=== PATIENT | female | born 1950 | race Caucasian/White ===

== ENCOUNTER 2017-01-05 09:40 | Day surgery (SDC) | payer MEDICARE, BC ==
[~2017-01-05 09:40] MED LIST: Ketorolac 30 MG/ML SDV ONE; Lactated Ringers 1,000 ML IV SCH; Midazolam 1 MG/ML 2 ML SDV ONE; Ondansetron 4 MG/2 ML SDV ONE; Propofol 200 MG/20 ML SDV ONE; Sodium Chloride 0.9% 10 ML Syringe FLUSH PRN; Sodium Chloride 0.9% 2.5 ML Syringe FLUSH PRN; fentaNYL 100 MCG/2 ML SDV ONE
--- NOTE | 2017-01-05 10:07 | PCM.PREANE ---
Preanesthetic Assessment - Anesthesia/Transfusion/Family Hx Anesthesia History: Prior Anesthesia Reaction Type of Anesthesia Reaction: Excessive Nausea/Vomiting Family History of Anesthesia Reaction: No Transfusion History: No Prior Transfusion(s) - Review of Systems General: No Symptoms - Physical Assessment NPO Status Date: 01/04/17 O2 Sat by Pulse Oximetry: 97 Respiratory Rate: 16 Vital Signs: Last Vital Signs Temp 36.4 C 01/05/17 10:02 Pulse 72 01/05/17 10:02 Resp 16 01/05/17 10:02 BP 140/85 01/05/17 10:02 Pulse Ox 97 01/05/17 10:02 Height: 1.65 m Weight: 61.689 kg ASA Class: 2 Mental Status: Alert & Oriented x3 Airway Class: Mallampati = 1 Dentition: Reports: Normal Dentition ROM/Head Extension: Full Lungs: Clear to Auscultation, Normal Respiratory Effort Cardiovascular: Regular Rate, Regular Rhythm - Allergies Allergies/Adverse Reactions: Allergies Allergy/AdvReac Type Severity Reaction Status Date / Time doxycycline Allergy Diarrhea Verified 12/30/16 16:28 hydromorphone [From Dilaudid] Allergy Drowsiness Verified 12/30/16 16:28 levofloxacin [From Levaquin] Allergy Hallucinati Verified 12/30/16 16:28 ons - Anesthesia Plan Pre-Op Medication Ordered: None - Acknowledgements Anesthesia Type Planned: General Anesthesia Pt an Appropriate Candidate for the Planned Anesthesia: Yes Alternatives and Risks of Anesthesia Discussed w Pt/Guardian: Yes Pt/Guardian Understands and Agrees with Anesthesia Plan: Yes PreAnesthesia Questionnaire Other HEENT History: wears glasses Gastrointestinal History: Reports: Irritable Bowel Syndrome Genitourinary History: Reports: None Neurological History: Reports: Migraines Other Neuro History: some motion sickness, hx of migranes..not lately - Past Surgical History HEENT Surgical History: Reports: Naso-Sinus Surgery, Tonsillectomy GI Surgical History: Reports: Cholecystectomy, Colonoscopy, EGD Female Surgical History: Reports: Hysterectomy, Tubal Ligation, Other (See Below) Other Female Surgeries/Procedures: TOVT and Laparoscopy - SUBSTANCE USE Smoking Status *Q: Never Smoker Recreational Drug Use History: No - HOME MEDS Home Medications: Home Meds Calcium Carbonate [Calcium] 1,000 mg PO BID 12/30/16 [History] Cetirizine [ZyrTEC] 10 mg PO ASDIRECTED PRN 12/30/16 [History] Cholecalciferol (Vitamin D3) [Vitamin D3] 1,000 unit PO DAILY 12/30/16 [History] Citalopram [Celexa] 20 mg PO DAILY 12/30/16 [History] Cyanocobalamin (Vitamin B12) [Vitamin B12] 1,000 mg PO DAILY 12/30/16 [History] Gluc/Nikunj-Msm#1/Vit C/Toni/Bor [Nxjwbvt-Lcsve-USP Complex Cplt] 1 cap PO BID [History] Hyoscyamine [Hyomax-SL] 0.125 mg PO ASDIRECTED PRN 12/30/16 [History] L.acidoph,Paracasei, B.lactis [Probiotic] 1 cap PO DAILY 12/30/16 [History] Meclizine [Antivert] 25 mg PO ASDIRECTED PRN 12/30/16 [History] Multivitamin [Multivitamins] 1 cap PO DAILY 12/30/16 [History] Jen Juice 2 oz PO DAILY 12/30/16 [History] Psyllium Husk [Metamucil] 1 tbsp PO DAILY 12/30/16 [History] Sodium Chloride 5% [Go 128 5% Ophth Oint] 1 dose EYEBOTH BEDTIME 12/30/16 [ History] - CURRENT (IN HOUSE) MEDS Current Meds: Current Medications Lactated Ringer's (Ringers, Lactated) 1,000 mls @ 125 mls/hr IV ASDIRECTED [facility] Last Admin: 01/05/17 10:04 Dose: 125 mls/hr Sodium Chloride (Saline Flush) 10 ml FLUSH ASDIRECTED PRN PRN Reason: Keep Vein Open Sodium Chloride (Saline Flush) 2.5 ml FLUSH ASDIRECTED PRN PRN Reason: Keep Vein Open Discontinued Medications Fentanyl (Sublimaze) Confirm Administered Dose 100 mcg .ROUTE .STK-MED ONE Stop: 01/05/17 07:18 Fentanyl (Sublimaze) Confirm Administered Dose 100 mcg .ROUTE .STK-MED ONE Stop: 01/05/17 07:19 Ketorolac Tromethamine (Toradol) Confirm Administered Dose 30 mg .ROUTE .STK- MED ONE Stop: 01/05/17 07:20 Lidocaine HCl (Xylocaine-Mpf 1%) Confirm Administered Dose 5 ml .ROUTE .STK-MED ONE Stop: 01/05/17 07:20 Midazolam HCl (Versed 1 Mg/Ml) Confirm Administered Dose 2 mg .ROUTE .STK-MED ONE Stop: 01/05/17 07:19 Ondansetron HCl (Zofran) Confirm Administered Dose 4 mg .ROUTE .STK-MED ONE Stop: 01/05/17 07:20 Propofol (Diprivan 20 Ml) Confirm Administered Dose 200 mg .ROUTE .STK-MED ONE Stop: 01/05/17 07:18
[2017-01-05] MEDS ORDERED: Lidocaine 1% with EPINEPHrine 1:100,000 20 ML MDV ONE (10:33)
[2017-01-05] MEDS ORDERED: Bupivacaine 0.25% 10 ML SDV ONE (10:33)
[2017-01-05] MEDS ORDERED: Neomycin/Polymyxin B Bladder Irrigation 1 ML Amp ONE (10:34)
--- NOTE | 2017-01-05 11:49 | PCM.OPNOTE ---
- General Post-Op/Procedure Note Date of Surgery/Procedure: 01/05/17 Operative Procedure(s): Revision right arm midurethral sling Findings: Exposed tape from midurethral sling along right side of vaginal sulcus Vaginal atrophy Pre Op Diagnosis: Exposed tape from midurethral sling (right sulcus). Vaginal atrophy Post-Op Diagnosis: Same Anesthesia Technique: General LMA Primary Surgeon: Rosanne Alfredo Ivf Embryologist: Delvin Osuna Pathology: vaginal mucosa/tape remnant Fluid Replacement, Intraop: 650 EBL in mLs: 30 Condition: Good Free Text/Narrative:: Dictation [id number]
[2017-01-05] MEDS ORDERED: fentaNYL 100 MCG/2 ML SDV IVPUSH PRN (11:50)
--- NOTE | 2017-01-05 12:20 | PCM.POSTAN ---
POST ANESTHESIA ASSESSMENT - MENTAL STATUS Mental Status: Alert, Oriented - RESPIRATORY Respiratory Status: Respiratory Rate WNL, Airway Patent - CARDIOVASCULAR CV Status: Pulse Rate WNL, Blood Pressure Stable - GASTROINTESTINAL GI Status: No Symptoms - POST OP HYDRATION Hydration Status: Adequate & Stable
--- NOTE | 2017-01-05 13:12 | PCM48HPAN ---
Post Anesthesia Note - EVALUATION WITHIN 48HRS OF ANESTHETIC Vital Signs in Normal Range: Yes Patient Participated in Evaluation: Yes Respiratory Function Stable: Yes Airway Patent: Yes Cardiovascular Function Stable: Yes Hydration Status Stable: Yes Pain Control Satisfactory: Yes Nausea and Vomiting Control Satisfactory: Yes Mental Status Recovered: Yes
[2017-01-05 15:23] VITALS: BP 125/62
--- NOTE | 2017-01-05 17:11 | OR ---
SURGEON: Rosanne Alfredo M.D. DATE OF PROCEDURE: 01/05/2017 PREOPERATIVE DIAGNOSES: 1. Exposed tape for mid urethral sling along the right sulcus. 2. Vaginal atrophy. POSTOPERATIVE DIAGNOSES: 1. Exposed tape for mid urethral sling along the right sulcus. 2. Vaginal atrophy. PROCEDURE: Revision of right arm of the mid urethral sling. BUS INSPECTOR: DANIELLE Pierce. ANESTHESIA: General LMA. FLUIDS: 650 mL crystalloid. ESTIMATED BLOOD LOSS: 30 mL. COMPLICATIONS: None known. FINDINGS: A few remnants of exposed mesh along the right sulcus region of vaginal atrophy noted. DISPOSITION: The patient to PACU, stable. INDICATIONS: Alyssa is a 66-year-old female, who has had a mid urethral sling since 2009, who presents with being evaluated by urologist for nocturia and found to have a few mesh fibers from the tape exposed at the right sulcus region. The patient has not had any vaginal bleeding, dyspareunia, or discomfort with this. However, the urologist is asking that this side of the tape be resected due to the exposure. On examination, there were just a few fibers eroding through exposing at the level of right sulcus. The remainder of the tape is not eroding or exposed. Therefore, options were discussed with the patient and she would like to proceed with surgical revision of this region of the tape. DESCRIPTION OF PROCEDURE: The patient was taken to the operating room, where she underwent general LMA, was placed in modified dorsal spine position, prepped and draped in the usual sterile fashion. The bladder was drained. The retractors were gently placed. The fibers were identified and grasped with an Allis clamp. The region of the mucosa was dissected over this region of the tape with Metzenbaum scissors, and this allowed for the tape to be more exposed. A section of the tape was now excised and will be sent to Pathology for further analysis. I palpated along this region and no further regions of exposure were noted. Therefore, the overlying mucosa was closed using 3-0 Vicryl in continuous running locked fashion. I took care to carefully dissect around this region to allow for minimal tension with closure which will hopefully reduced the risk of this region having thinness which would allow for exposure or erosion to take place in the future, especially with the increasing vaginal atrophy that the patient is experiencing. She has had difficulty affording vaginal estrogen due to her insurance coverage. The region was now closely inspected and palpated and no fibers were palpated or exposed tape was palpated. The area of mucosa closed over this region felt to be fairly thick. Hemostasis appeared evident. Sponge count and instrument count were correct. The patient tolerated the procedure well. She will go to PACU in stable condition. All specimens pathology. SANTO / CORNELL /[id number] CATHY
== END 2017-01-05 15:25 | disposition home or self-care (01) ==
LOC: MW.SDS 09:40
PROVIDERS: ATTEND Obstetrics & Gynecology
DX: T83.721A Exposure of implanted vaginal mesh into vagina, initial encounter (principal); N95.2 Postmenopausal atrophic vaginitis; N90.5 Atrophy of vulva; N39.46 Mixed incontinence; K58.9 Irritable bowel syndrome, unspecified; Z79.899 Other long term (current) drug therapy; Z98.51 Tubal ligation status; Z90.49 Acquired absence of other specified parts of digestive tract; Z90.710 Acquired absence of both cervix and uterus; Z90.89 Acquired absence of other organs; Z98.890 Other specified postprocedural states; Z88.1 Allergy status to other antibiotic agents; Z88.5 Allergy status to narcotic agent
CPT/HCPCS: 36415; 57287; 85027; J1885; J2250; J2405; J3010; J7120; 00860; 88302; J2704